=== PATIENT | female | born 1935 | race Caucasian/White ===

== ENCOUNTER 2020-05-04 11:15 | Emergency (ER) | payer MEDICARE, OTHER ==
--- NOTE | 2020-05-04 11:27 | EDM.PDOC ---
ED HPI GENERAL MEDICAL PROBLEM - General Chief Complaint: Wound Recheck Stated Complaint: REMOVAL OF STITCHES Time Seen by Provider: 05/04/20 11:25 Source of Information: Reports: Patient, RN, RN Notes Reviewed History Limitations: Reports: No Limitations - History of Present Illness INITIAL COMMENTS - FREE TEXT/NARRATIVE: Pt presents to ER with request for suture removal. She states she had carpal tunnel surgery by Dr. Bridges on 04/23/20. She called Dr. Bridges's clinic yesterday because she doesn't have a f/u appt. until 05/10/2020. She states the nurse told her to go to the local clinic at 11:20HRS but she states the clinic is closed. Denies any signs of infection. Onset Date: 04/23/20 Duration: Constant - Related Data Allergies Allergy/AdvReac Type Severity Reaction Status Date / Time cephalexin monohydrate Allergy Itching Verified 05/04/20 11:26 [From Keflex] latex Allergy Itching Verified 05/04/20 11:26 rofecoxib [From Vioxx] Allergy Other Verified 05/04/20 11:26 Home Meds: Home Meds ALPRAZolam [Alprazolam] 0.25 mg PO QID 12/31/14 [History] Ascorbic Acid 500 mg PO DAILY 12/31/14 [History] Calcium & Magnesium Carbonate [Antacid Gelatin Caplet] 2 tab PO ASDIRECTED 12/31/14 [History] Cholecalciferol (Vitamin D3) [Cholecalciferol] 2 tab PO DAILY 12/31/14 [History] Estradiol Acetate [Femring] 1 cap VAG ASDIRECTED 12/31/14 [History] Lecithin, Soy [Lecithin] 2 cap PO DAILY 12/31/14 [History] Levothyroxine [Synthroid] 100 mcg PO DAILY 12/31/14 [History] Naproxen Sodium 220 mg PO ASDIRECTED PRN 12/31/14 [History] [place]-3 Fatty Acids [[place]-3] 1 gm PO DAILY 12/31/14 [History] Pravastatin [Pravachol] 40 mg PO DAILY 12/31/14 [History] Psyllium [Metamucil] 1 dose PO DAILY 12/31/14 [History] Sertraline HCl 100 mg PO DAILY 12/31/14 [History] Topiramate [Topamax] 50 mg PO BID 12/31/14 [History] Ubidecarenone [Coenzyme Q10] 1 tab PO DAILY 12/31/14 [History] Vitamin B Complex [B Complex] 1 - 2 tab PO DAILY 12/31/14 [History] Vitamin A 16,000 intnl unit PO DAILY 01/02/15 [History] Past Medical History Other HEENT History: REFRACTIVE ERROR Other Respiratory History: SPASMODIC DYSPHONIA Other Gastrointestinal History: GLUTEN INTOLERANCE; LACTOSE INTOLERANCE; HISTORY OF HPYLORI Other Genitourinary History: MIXED INCONTINENCE Other PHYSICAL THERAPY COORDINATOR History: MULTIPARITY Other Neuro History: BENIGN ESSENTIAL TREMOR Other Endocrine/Metabolic History: HYPOTHYRIODISM - Past Surgical History Other HEENT Surgeries/Procedures: BILAT CATARACT EXTRACTION WITH INTRAOCULAR LENSE IMPLANT; ADENOIDECTOMY Other Cardiovascular Surgeries/Procedures: CARDIAC CATH Other Female Surgeries/Procedures: VOIDING CYSTOMETROGRAM; COMPLEX CYSTOMETROGRAM Other Neurological Surgeries/Procedures: EMG Other Musculoskeletal Surgeries/Procedures:: TENDON RELEASE Other Oncologic Surgeries/Procedures: RIGHT BREAST BIOPSY Social & Family History - Family History Family Medical History: No Pertinent Family History - Living Situation & Occupation Occupation: Retired ED ROS GENERAL - Review of Systems Review Of Systems: Comprehensive ROS is negative, except as noted in HPI. ED EXAM, SKIN/RASH Exam: See Below Exam Limited By: No Limitations General Appearance: Alert, WD/WN, No Apparent Distress Respiratory/Chest: No Respiratory Distress Peripheral Pulses: 3+: Radial (L), Radial (R) Extremities: Normal Capillary Refill, Other (Sutures at base of left palm, well healed incision with no sign of infection) Neurological: Alert, Oriented, No Motor/Sensory Deficits Course - Vital Signs Last Recorded V/S: Last Vital Signs Temp 97.2 F 05/04/20 11:32 Pulse 108 H 05/04/20 11:32 Resp 18 05/04/20 11:32 BP 108/57 L 05/04/20 11:32 Pulse Ox 97 05/04/20 11:32 - Re-Assessments/Exams Free Text/Narrative Re-Assessment/Exam: 05/04/20 11:26 Sutures removed by RN. No complications. Departure - Departure Time of Disposition: 11:41 Disposition: Home, Self-Care 01 Condition: Good Clinical Impression: Encounter for removal of sutures - Discharge Information *PRESCRIPTION DRUG MONITORING PROGRAM REVIEWED*: Not Applicable *COPY OF PRESCRIPTION DRUG MONITORING REPORT IN PATIENT VLAD: Not Applicable Instructions: Suture Removal, Care After Forms: ED Department Discharge Additional Instructions: Follow up with your surgeon on as scheduled. Sepsis Event Note (ED) - Focused Exam Vital Signs: Vital Signs Temp Pulse Resp BP Pulse Ox 05/04/20 11:32 97.2 F 108 H 18 108/57 L 97
== END 2020-05-04 11:46 | disposition home or self-care (01) ==
LOC: DL.ED 11:15
CPT/HCPCS: 99281; 99282